=== PATIENT | female | born 1985 | race Caucasian/White ===

== ENCOUNTER → 2019-09-30 | Outpatient (CLI) | payer BC ==
[~2019-09-30] MED LIST: ALLEGRA ALLERG180 MG PO; COMPAZINE 110 MG/TAB PO; CYMBALTA 60MG60 MG PO; DESYREL 100MG100 MG PO; EMGALITY120 MG/1 M SQ; ESTRACE2 MG PO; INDERAL80 MG PO; KLONOPIN 0.5MG0.5 MG PO; LEVSIN0.125 M1 PO; MASON NATURAL2000 IU PO; MIRAPEX 0.0.125 MG/T PO; MULTI VITAMINS1 TAB PO; PRIL40 PO; RELPAX 40MG TAB40 MG PO; TROKEND25 PO; ULTRACET TABL1 UDTAB PO; [UNRECOGNIZED DRUG - OTHER]; [UNRECOGNIZED DRUG - OTHER] PO
== END ==
LOC: MHCPAIN 15:03
DX: M54.81 Occipital neuralgia (principal); R51 Headache; M79.2 Neuralgia and neuritis, unspecified; M54.2 Cervicalgia
CPT/HCPCS: G0463

== ENCOUNTER → 2019-10-13 | Outpatient (CLI) | payer BC | LOC: MHCPAIN 15:03 | DX: M54.2 Cervicalgia (principal); G89.29 Other chronic pain | CPT/HCPCS: J1100 ==

== ENCOUNTER → 2020-01-13 | Outpatient (CLI) | payer BC | LOC: MHCPAIN 15:28 | DX: M54.2 Cervicalgia (principal); M54.81 Occipital neuralgia; G89.29 Other chronic pain; R51.9 Headache, unspecified | CPT/HCPCS: G0463 ==

== ENCOUNTER → 2020-02-05 | Outpatient (CLI) | payer BC | LOC: MHCPAIN 10:37 | DX: M47.812 Spondylosis without myelopathy or radiculopathy, cervical region (principal); M54.2 Cervicalgia; R51.9 Headache, unspecified ==

== ENCOUNTER → 2020-02-11 | Outpatient (CLI) | payer BC | LOC: MHCPAIN 15:14 | DX: M47.812 Spondylosis without myelopathy or radiculopathy, cervical region (principal); M54.2 Cervicalgia; R51.9 Headache, unspecified; G89.29 Other chronic pain | CPT/HCPCS: G0463 ==

== ENCOUNTER → 2020-02-16 | Outpatient (CLI) | payer BC | LOC: MHCPAIN 13:05 | DX: M47.812 Spondylosis without myelopathy or radiculopathy, cervical region (principal); M54.2 Cervicalgia; R51.9 Headache, unspecified ==

== ENCOUNTER → 2020-03-01 | Outpatient (CLI) | payer BC | LOC: MHCPAIN 13:19 | DX: M47.812 Spondylosis without myelopathy or radiculopathy, cervical region (principal); M54.2 Cervicalgia; R51.9 Headache, unspecified; G89.29 Other chronic pain | CPT/HCPCS: G0463; J1100; J2250; J3010 ==

== ENCOUNTER → 2020-04-28 | Outpatient (CLI) | payer BC | LOC: MHCPAIN 14:15 | DX: M54.2 Cervicalgia (principal); M47.812 Spondylosis without myelopathy or radiculopathy, cervical region; G89.29 Other chronic pain; R51.9 Headache, unspecified | CPT/HCPCS: G0463 ==

== ENCOUNTER → 2020-08-25 | Outpatient (CLI) | payer BC | LOC: MHCPAIN 15:00 | DX: M47.812 Spondylosis without myelopathy or radiculopathy, cervical region (principal); M54.2 Cervicalgia; R51.9 Headache, unspecified | CPT/HCPCS: G0463 ==